=== PATIENT | female | born 1995 | race Caucasian/White ===

== ENCOUNTER 2022-10-17 05:00 | Inpatient (IN) | payer BC, MEDICAID, SELFPAY ==
[2022-10-17] VITALS (48 sets, daily range): BP systolic 88–122; BP diastolic 28–87; PULSE 71–175; RESP 15–18; TEMP 36.3–37.2; O2SAT 87–100; BMI 25.9
--- NOTE | 2022-10-17 05:40 | LDADM ---
This patient, Beth Geronimo, was admitted to Labor/Delivery/Recovery 107 on 10/17/22 at 05:00. Plans for labor, pain management and were discussed with patient. Patient/family oriented to hospital policies and general routines including ID bracelet, bed and alarms, visiting hours, pain management, procedures, bathroom and other care routines, personal items, smoking policy, room service/diet and guest tray routines, infant security routines, and visiting hours. Patient/Family are encouraged to report perceived risks to care and to ask questions if they do not understand what they are told or what they should do. See OBIX for further documentation.
[2022-10-17 05:58] LABS: Basophils Absolute Auto 0.1 K/mm3 (0.0-0.1); Basophils Percent Auto 0.8 % (0.2-1.2); Eosinophils Absolute Auto 0.3 K/mm3 (0-0.3); Eosinophils Percent Auto 2.8 % (0-4.4); Hematocrit 34.7 % (37.0-47.0); Hemoglobin 11.6 g/dL (12.0-15.0); Immature Granulocyte Absolute 0.09 K/mm3 (0.00-0.031); Immature Granulocyte Percent A 0.9 % (0-0.5); Lymphocytes Percent Auto 22.3 % (18.3-44.2); Mean Corpuscular HGB Conc 33.4 g/dl (32-36); Mean Corpuscular Volume 86.8 fl (80-100); Mean Platelet Volume 11.5 fl (7.4-10.4); Monocytes Absolute Auto 0.7 K/mm3 (0.1-0.6); Monocytes Percent Auto 7.2 % (2.6-8.5); Neutrophils Absolute Auto 6.8 K/mm3 (1.3-6.7); Platelet Count Result 206 k/mm3 (150-375); Red Cell Distribution Width 14.1 % (11.5-14.5); White Blood Count 10.3 K/mm3 (4.5-10.0)
[2022-10-17] MEDS: OXYTOCIN 30 UNITS/NS 500 ML 30 UNITS/500 ML BAG 6 UNITS IV CONT (06:13)
[2022-10-17] MEDS: LACTATED RINGERS 1,000 ML 125 ML IV CONT ×2 (06:13→09:35)
--- NOTE | 2022-10-17 07:50 | PM.IMHP ---
H&P: HPI History of Present Illness Date/Time: 10/17/22 07:50 Chief Complaint: Induction of labor at term Narrative: cyst 27-year-old 1 para 0 whose last menstrual period was unknown but EDC is [id number] week ultrasound presents at 40 weeks gestation for induction of labor secondary to post dates. Cervix is favorable and she is negative group B strep PMFSH Family History Family History Other Breast cancer in female Father Progressive hearing loss of both ears Social History Social History Smoking status: Never smoker Substance use: never Lack of Transportation: No Lack of Food: Never True Current Housing: I Have Housing Concerned About Future Housing: No Difficulty Paying Gas/Electric Bills: No Difficulty Paying for Meds: No Currently Unemployed: No Education: Associate Degree Difficulty w/ Childcare or Family Care: No Spiritual care concerns: No Meds Home Medications and Allergies Allergies Allergy/AdvReac Type Severity Reaction Status Date / Time No Known Allergies Allergy Verified 09/18/22 15:03 Vital Signs Vital Signs - 24 hr 10/17/22 05:27 10/17/22 06:46 10/17/22 05:55 Temperature 97.4 F L Pulse Rate 93 Blood Pressure 116/78 Pulse Oximetry 87 L Oxygen Delivery Room Air Exam Const: General: cooperative, healthy appearing, comfortable and well groomed Nutritional Appearance: average body habitus Orientation/consciousness: oriented to person, oriented to place and oriented to time HENMT: Head: normal to inspection Resp: Effort & Inspection: normal respiratory effort Cardio: Rate: regular rate Rhythm: regular rhythm Heart sounds: S1 normal heart sound present and S2 normal heart sound present GI: Inspection: normal to inspection : External Female Exam: normal external appearance Speculum Exam - Vagina: normal appearance of the vagina Speculum Exam - Cervix: normal appearance of the cervix ( cervix 3 she/ -1 AROM clear. FHTs reassuring) H&P: Results Labs Labs: Short CBC 10/17/22 Range/Units 05:20 WBC 10.3 H (4.5-10.0) K/mm3 Hgb 11.6 L (12.0-15.0) g/dL Hct 34.7 L (37.0-47.0) % Plt Count 206 (150-375) k/mm3 Assessment and Plan Assessment and plan (1) Term : Code(s): Z34.90 - Encounter for supervision of normal , unspecified, unspecified trimester Status: Acute Plan medical induction of labor. Spontaneous vaginal delivery expected. She is an epidural candidate
--- NOTE | 2022-10-17 08:29 | P.PNAN_ITS ---
Anes - Eval Pre Procedure Procedure: Labor Pain Management Date/Time: 10/17/22 08:29 Surgeon: Jaime Preop Diagnosis: pain during labor Pre Op Diagnosis: IOL Patient Data Age: 27 Gender: F Height: 1.6 m Weight: 66.5 kg Last Vital Signs Temp 97.4 F L 10/17/22 06:46 Pulse 93 10/17/22 05:27 BP 116/78 10/17/22 05:27 Pulse Ox 87 L 10/17/22 05:27 O2 Del Method Room Air 10/17/22 05:55 Allergies Allergy/AdvReac Type Severity Reaction Status Date / Time No Known Allergies Allergy Verified 09/18/22 15:03 Laboratory Tests 10/17/22 10/17/22 10/17/22 05:20 05:20 05:20 WBC 10.3 K/mm3 H K/mm3 (4.5-10.0) RBC 4.00 M/mm3 L M/mm3 (4.2-5.4) Hgb 11.6 g/dL L g/dL (12.0-15.0) Hct 34.7 % L % (37.0-47.0) MCV 86.8 fl fl (80-100) MCH 29.0 pg pg (26-34) MCHC 33.4 g/dl g/dl (32-36) RDW 14.1 % % (11.5-14.5) Plt Count 206 k/mm3 k/mm3 (150-375) MPV 11.5 fl H fl (7.4-10.4) Immature Gran % (Auto) 0.9 % H % (0-0.5) Neut % (Auto) 66.0 % % (45.5-73.1) Lymph % (Auto) 22.3 % % (18.3-44.2) Hooker % (Auto) 7.2 % % (2.6-8.5) Eos % (Auto) 2.8 % % (0-4.4) Baso % (Auto) 0.8 % % (0.2-1.2) Lymph # (Auto) 2.30 K/mm3 K/mm3 (0.9-3.2) Hooker # (Auto) 0.7 K/mm3 H K/mm3 (0.1-0.6) Eos # (Auto) 0.3 K/mm3 K/mm3 (0-0.3) Baso # (Auto) 0.1 K/mm3 K/mm3 (0.0-0.1) Abs Immat Gran (auto) 0.09 K/mm3 H K/mm3 (0.00-0.031) Absolute Neuts (auto) 6.8 K/mm3 H K/mm3 (1.3-6.7) Absolute Nucleated RBC 0.0 K/mm3 K/mm3 (0.0-0.012) Nucleated RBC % 0.0 % % (0.0-0.2) RPR Pending Blood Type B Positive Antibody Screen Negative Patient hx anesthesia problems: none Family hx anesthesia problems: none Results Review: All pre-operative results and documents have been reviewed as part of the pre- operative evaluation. [facility] Family History Family History Other Breast cancer in female Father Progressive hearing loss of both ears Social History Social History Smoking status: Never smoker Substance use: never Lack of Transportation: No Lack of Food: Never True Current Housing: I Have Housing Concerned About Future Housing: No Difficulty Paying Gas/Electric Bills: No Difficulty Paying for Meds: No Currently Unemployed: No Education: Associate Degree Difficulty w/ Childcare or Family Care: No Spiritual care concerns: No Exam Day of Procedure 10/17/22 08:29 Patient weight: normal Neurological: alert and oriented
--- NOTE | 2022-10-17 10:34 | PM.OBPNLAB ---
Pain Control Date/time seen: 10/17/22 10:34 Pain control: tolerating well and epidural Pelvic Exam Amniotic membrane status: Leaking Contractions Monitor mode: External Contraction frequency: 3
--- NOTE | 2022-10-17 14:10 | PM.OBPRVD ---
OB - Delivery Note Procedure Delivery date: 10/17/22 Procedure: mil Events: Elective Induction of Labor Induction method: AROM Delivery augmentation: Pitocin Delivery monitor: External FHT Route of delivery: Episiotomy description: None Laceration Description: Perineal - 1st Degree Delivery repair: vicryl Specimen: No Quantitative Blood Loss (ml): 60 Anesthesia type: Epidural Disposition: Floor [place] Baby Date of : 10/17/22 Weeks of gestation at delivery: 40 Weight (pounds): 7 Weight (ounces): 11 position: Left Occiput Anterior Placenta delivery description: Spontaneous Cord Vessel Description: 3 Vessels and Delayed Cord Clamping score one minute: 9 score five minutes: 9
[2022-10-17] MEDS: OXYTOCIN 30 UNITS/NS 500 ML 30 UNITS/500 ML BAG 125 UNITS IV CONT (14:30)
[2022-10-17] MEDS: ACETAMINOPHEN 500 MG TABLET 1000 MG (14:35)
[2022-10-17] MEDS: BENZOCAINE 20% AER SPR (*SP) 56 GM CAN 1 SPRAY TOPICAL (17:10)
[2022-10-17] MEDS: WITCH HAZEL 40 PADS 1 PAD TOPICAL (17:10)
--- NOTE | 2022-10-17 17:40 | PC.NURSE ---
Patient transferred to post room #282 via wheelchair. Support person present. Oriented to unit, room, information board, rooming in, admission packet and security measures. Patient verbalizes understanding.
--- NOTE | 2022-10-17 18:22 | PC.NURSE ---
Shahrzad Contreras RN, has looked over and agrees with the charting for this patient that Irasema Burnette RN, has completed.
[2022-10-18 04:30] VITALS: BP 120/63; PULSE 92; RESP 18; TEMP 36.7
[2022-10-18] MEDS: IBUPROFEN 600 MG TABLET PO (04:42)
[2022-10-18] MEDS: ACETAMINOPHEN 325 MG TABLET 650 MG PO (04:43)
[2022-10-18 05:10] LABS: Hematocrit 29.5 % (37.0-47.0); Hemoglobin 9.6 g/dL (12.0-15.0)
--- NOTE | 2022-10-18 06:47 | PM.DS ---
DS: Admitting Diagnosis Discharge Date 10/18/2022 Admitting Diagnosis Postdates DS: Discharge Diagnosis Discharge Diagnosis (1) Term : Code(s): Z34.90 - Encounter for supervision of normal , unspecified, unspecified trimester Status: Acute DS: Summary Hospital Course Reason for hospitalization: induction of labor postdates Hospital Course: is a 27-year-old 1 para 0 who was admitted at 40 and half weeks gestation for induction of labor. She underwent spontaneous vaginal delivery with assistance of epidural anesthesia. Her hospital course unremarkable. She remained afebrile. She was up, ambulating, eating regular diet, breast-feeding, voiding without difficulty, and generally without complaints. Time Spent with Patient Time attestation: Total time spent providing and/or coordinating discharge services: Exam Const: General: cooperative, healthy appearing, comfortable and well groomed Nutritional Appearance: average body habitus Orientation/consciousness: oriented to person, oriented to place and oriented to time HENMT: Head: normal to inspection Resp: Effort & Inspection: normal respiratory effort Cardio: Rate: regular rate Rhythm: regular rhythm Heart sounds: S1 normal heart sound present and S2 normal heart sound present GI: Inspection: normal to inspection ( Fundus firm below the umbilicus) DS: Data Data Completed and Pending Pending studies at discharge: Pending at discharge 10/17/22 14:24 Surgical [PTH] Routine Labs on day of discharge: Labs from last 24 hours 10/18/22 10/17/22 04:40 05:20 Hgb 9.6 L Hct 29.5 L Blood Type B Positive Antibody Screen Negative Discharge Plan Discharge Attending physician on discharge: Vinny Randolph Discharging Clinician: Vinny Randolph Patient Disposition: Home, Self-Care Activity: may shower and pelvic rest Diet: heart healthy Wound Care Instructions: follow printed instructions Discharge Instructions: Education: Mom and Baby Guide Given to: Mother Follow-Up: Call your delivering provider's office for an appointment to be seen in: 6 Weeks Mom and baby should come to the [facility] for the follow-up appointment. Appointment Date/Time: October 21, 2022 at 11:00 am What to expect at your follow-up visit: Blood Pressure Check Physical Assessment Call [phone] if you are unable to keep your appointment time. BREAST CARE: * Wear a snug supportive bra. * For engorgement discomfort: Breast Feeding: * Apply warm moist washcloths * Express milk as needed to relieve engorgement * Wear loose clothing * For sore nipples: * Identify correct latch-on * Apply warm moist washcloths before and after nursing * Air dry nipples after nursing * May apply Lansinoh cream and Hydrogel pads to nipples EPISIOTOMY/PERINEAL CARE: * Until bleeding stops, use your harsha bottle after urinating * Change your pad frequently throughout the day * You may take sitz baths several times a day (fill your bathtub with warm water and soak for 20 minutes.) Do NOT bathe in the water * No tub baths until seen by your physician - You may shower ACTIVITY: * Rest as much as possible. * Do not exercise or lift anything heavier than your baby (such as laundry or other children.) * Avoid stairs or driving as much as possible. * Do not put anything into the vagina. No douching, tampons, or sexual activity until seen by physician. NOTIFY PHYSICIAN IF YOU HAVE ANY QUESTIONS OR IF ANY OF THE FOLLOWING SYMPTOMS OCCUR: * If your vaginal area becomes red, swollen, or more painful than what you have experienced in the hospital. * If your vaginal bleeding becomes foul smelling. * If your vaginal bleeding becomes more heavy than a period or if your bleeding changes from pink to bright red. How
--- NOTE | 2022-10-18 06:50 | PM.OBPNVD ---
OB - PN: Subj Subjective Date/time seen: 10/18/22 06:50 Patient comments: no complaints and pain well controlled baby status: doing well and nursing well OB - PN: Obj Data Labs 10/18/22 04:40 Labs: Laboratory Results - last 24 hr 10/17/22 10/18/22 05:20 04:40 Hgb 9.6 L Hct 29.5 L Blood Type B Positive Antibody Screen Negative OB - PN A/P Plan day: 1 Plan: routine care Time Spent With Patient Time: Total time spent is greater than 50% in coordination of care (as documented) at patient's floor/unit and/or counseling patient: Time with patient: less than 15 minutes Exam Const: General: cooperative, healthy appearing and comfortable Nutritional Appearance: average body habitus Orientation/consciousness: oriented to person, oriented to place and oriented to time HENMT: Head: normal to inspection Resp: Effort & Inspection: normal respiratory effort Cardio: Rate: regular rate Rhythm: regular rhythm Heart sounds: S1 normal heart sound present and S2 normal heart sound present GI: Inspection: normal to inspection ( fundus firm below the umbilicus)
[2022-10-18 08:00] VITALS: BP 106/58; PULSE 68; RESP 16; TEMP 36.8; O2SAT 98
[2022-10-18 08:30] VITALS: PULSE 82; RESP 16; O2SAT 98
[2022-10-18 12:09] VITALS: BP 126/84; PULSE 82; RESP 16; TEMP 36.7; O2SAT 98
--- NOTE | 2022-10-18 12:09 | WPDANLDPN2 ---
Anes-Prog Note L&D Date/Time: 10/18/22 12:09 Comfortable throughout: labor and delivery Neuraxial method: epidural Epidural/Spinal procedure site: clean & non-tender Neuro status: Neuro function grossly intact. Cardiovascular status: normal Respiratory status: normal Airway patency: baseline Mental status: baseline Post-Op hydration status: normal Vital Signs: Last Vital Signs Temp 36.8 C 10/18/22 08:00 Pulse 68 10/18/22 08:00 Resp 16 10/18/22 08:00 BP 106/58 L 10/18/22 08:00 Pulse Ox 98 10/18/22 08:00 O2 Del Method Room Air 10/18/22 04:05 Pain score (VAS): 3/10 I/O: Intake & Output 10/17/22 10/18/22 10/18/22 23:59 07:59 15:59 Intake Total 740 Balance 740 Post-procedural complaints: none Patient feedback: Patient satisfied with anesthetic care.
--- NOTE | 2022-10-18 14:58 | PC.NURSE ---
[id number] Introductions were made, then consulted with patient to assess needs related to . Mother led the conversation with her?plans to feed?her infant and the?experience so far. Mother works well with her infant with encouragement and education. Encouraged understanding of the benefits of skin to skin (demonstrating unwrapping and placing upright on her chest), stimulating with massage touch, changing positions to encourage wakefulness, how to watch for early feeding cues, responsive feeding, feeding on demand (aiming for 8-12 times in 24 hours, about every 2-3 hours), milk production, hand expression, building/maintaining a milk supply, duration of feeding, signs of adequate intake/output and how to record on the feeding sheet. Reviewed positioning and ear, shoulder, hip alignment, supporting the breast to facilitate a deep latch, asymmetrical latch (off-center), leading with the chin with a big, open, wide gape and body close to mother. latched optimally to the right breast in cross cradle position. Education given to mother of how to visualize suck/swallow ratios and listen for drinking at the breast. Infant was able to maintain latch without discomfort to mother. Nipple care reviewed with optimal latch and good positioning. Reviewed good handwashing when or touching the breast/nipples to prevent infection. Resources used to facilitate learning were used with the tool, mom and baby guide. Mother voiced understanding of skin to skin, stimulating with massage touch, responsive feedings, hand expressed colostrum, talking to infant to encourage if it has been 2 -2.5 hours since the start of the last , to call if does not latch, or if there is discomfort with . Resources provided for inpatient/outpatient with the mom/baby guide. Mother voiced understanding of information, demonstrated learning and will call if there is a request for assistance. Reported to the primary RN.
[2022-10-18 16:54] LABS: Rapid Plasma Reagin Non-Reactive (NonReactive)
--- NOTE | 2022-10-18 18:02 | PC.NURSE ---
Patient viewed the discharge video Mother & Baby Care, The First Two Weeks . Patient was given the opportunity and encouraged to ask questions. Patient verbalized understanding of information shared and has been given the mother/baby guide for home reference.
[2022-10-21 11:11] VITALS: BP 111/68; PULSE 71; RESP 20; TEMP 37.1; O2SAT 98
== END 2022-10-18 19:11 | disposition home or self-care (01) | DRG 807 ==
LOC: ANHLDR 05:20 → ANHOB2 17:19
PROVIDERS: Admitting Provider Obstetrics & Gynecology; Visit Provider Obstetrics & Gynecology
DX: O76 Abnormality in fetal heart rate and rhythm complicating labor and delivery (principal); Z37.0 Single live birth; O70.0 First degree perineal laceration during delivery; Z3A.40 40 weeks gestation of pregnancy
CPT/HCPCS: 36415; 85014; 85018; 85025; 86592; 86850; 86900; 86901; A9270; J2590; J2795; J7120